=== PATIENT | male | born 1960 | race Caucasian/White ===

== ENCOUNTER 2024-10-07 17:26 | Emergency (ER) | payer MEDICAID ==
[2024-10-07] MEDS ORDERED: Mupirocin Oint 22 GM Tube TOP ONE (18:05)
[2024-10-07] MEDS: Lidocaine 1% with EPINEPHrine 1:100,000 20 ML MDV INJECT ONE (18:07)
== END 2024-10-07 18:17 | disposition home or self-care (01) ==
LOC: LB.ED 17:26
DX: S60.453A Superficial foreign body of left middle finger, initial encounter (principal); Z79.899 Other long term (current) drug therapy; W45.8XXA Other foreign body or object entering through skin, initial encounter
CPT/HCPCS: 99283; J2004